=== PATIENT | female | born 1975 | race Caucasian/White ===

== ENCOUNTER 2018-10-04 11:27 | Day surgery (SDC) | payer OTHER ==
[2018-10-04] MEDS ORDERED: MISOPROSTOL 0.2 MG TABLET ONE (11:32)
[2018-10-04] MEDS ORDERED: METHYLERGONOVINE MALEATE INJ/PF 0.2 MG/1 ML AMPULE ONE (11:32)
[2018-10-04] MEDS ORDERED: FENTANYL CITRATE INJ/PF 100 MCG/2 ML AMPUL ONE (11:54)
[2018-10-04] MEDS ORDERED: ONDANSETRON HCL INJ/PF 4 MG/2 ML SDV ONE (11:54)
[2018-10-04] MEDS ORDERED: DEXAMETHASONE SOD PHOSPHATE INJ 4 MG/1 ML VIAL ONE (11:54)
[2018-10-04] MEDS ORDERED: MIDAZOLAM 2 MG/2 ML INJ ONE (11:54)
[2018-10-04] MEDS ORDERED: PROPOFOL INJ 200 MG/20 ML VIAL IV ONE (11:55)
[2018-10-04] MEDS ORDERED: DOXYCYCLINE HYCLATE 100 MG in DEXTROSE 5%-WATER 250 ML IV PRN (12:00)
[2018-10-04] MEDS ORDERED: ALBUTEROL SULFATE 0.083% NEB 2.5 MG/3 ML AMPUL NEB ONE (12:05)
[2018-10-04 12:09] LABS: APPEARANCE,URINE CLEAR; BILIRUBIN,URINE NEGATIVE (NEGATIVE); COLOR,URINE STRAW; GLUCOSE, URINE 50 mg/dL (NEGATIVE); KETONES,URINE NEGATIVE (NEGATIVE); LEUKOCYTE ESTERASE,URINE NEGATIVE (NEGATIVE); NITRITE,URINE NEGATIVE (NEGATIVE); PROTEIN,URINE NEGATIVE (NEGATIVE); URINE SPECIFIC GRAVITY 1.006; UROBILINOGEN,URINE NEGATIVE mg/dL (<2.0)
[2018-10-04 12:33] LABS: HEMATOCRIT 38.5 % (36.0-47.0); HEMOGLOBIN 13.9 g/dL (12.0-15.5); MEAN CORPUSCULAR HEMOGLOBIN 31.4 pg (27.0-33.4); MEAN CORPUSCULAR HGB CONC 36.1 g/dL (32.0-36.0); MEAN CORPUSCULAR VOLUME 87 fl (80-97); PLATELET COUNT 219 10^3/uL (150-450); RED BLOOD COUNT 4.43 10^6/uL (3.72-5.28); RED CELL DISTRIBUTION WIDTH 14.2 % (11.5-14.0); WHITE BLOOD COUNT 9.4 10^3/uL (4.0-10.5)
[2018-10-04] MEDS ORDERED: METOCLOPRAMIDE HCL INJ/PF 10 MG/2 ML SDV ONE (12:38)
[2018-10-04] MEDS ORDERED: FAMOTIDINE INJ/PF 20 MG/2 ML SDV IV ONE (12:39)
[2018-10-04] MEDS ORDERED: RINGERS SOLUTION,LACTATED 1,000 ML IV ONE (12:45)
[2018-10-04] MEDS ORDERED: PROMETHAZINE HCL INJ 25 MG/1 ML VIAL IV PRN ×2 (13:28)
[2018-10-04] MEDS ORDERED: DIPHENHYDRAMINE HCL 50 MG/ML VIAL IV PRN (13:28)
[2018-10-04] MEDS ORDERED: FENTANYL CITRATE INJ/PF 100 MCG/2 ML AMPUL IV PRN ×3 (13:28)
[2018-10-04] MEDS ORDERED: MEPERIDINE HCL/PF INJ 25 MG/1 ML DISP.SYRIN IV PRN (13:28)
[2018-10-04 13:43] LABS: CHLAM PCR NOT DETECTED (NOT DETECT); GON PCR NOT DETECTED (NOT DETECT)
[2018-10-04] MEDS: FENTANYL CITRATE INJ/PF 100 MCG/2 ML AMPUL ONE ×2 (13:45→13:50)
--- NOTE | 2018-10-04 13:51 | Operative Report ---
Operative Report DATE OF SURGERY: 10/04/18 PREOPERATIVE DIAGNOSIS: 1. Missed at 7 weeks. 2. Rh+ POSTOPERATIVE DIAGNOSIS: Same OPERATION: Suction dilatation and curettage SURGEON: PAULO WALKER ANESTHESIA: GA TISSUE REMOVED OR ALTERED: Products of conception COMPLICATIONS: None ESTIMATED BLOOD LOSS: 100 ml INTRAOPERATIVE FINDINGS: Uterus sounded to 10 cm; minimal amounts of products of conception; 8 mm curved [place] curette used for the procedure PROCEDURE: After appropriate consents had been obtained, the patient was taken to the Operating Room where general anesthesia was placed without difficulty. She was prepped and draped in the normal sterile fashion in the dorsal lithotomy position. Exam under anesthesia was performed with an 10 week sized uterus and no adnexal pathology palpable. Straight catheter urine was obtained of approximately 200 mL of clear urine. A speculum was placed in the vagina. The anterior lip the cervix was grasped with a single-tooth tenaculum. The uterus sounded to 10 cm. Sequential dilators were then used to dilate the cervix to a size 24. An 8 mm curved suction curette was introduced and products of conception were removed. The suction catheter was removed and gentle curettage was then undertaken throughout the cavity. The suction catheter was introduced once again and additional products of conception and blood clot were removed. The curette was once again introduced and the cavity was felt to be empty of further tissue. All instruments were then removed from the patient's vagina. The anterior lip of the cervix was hemostatic. Minimal bleeding was seen coming from the cervical os. Cytotec 800 mcg was placed per rectum. Sponge and instrument counts were correct x 2. Patient tolerated procedure well and transferred to recovery in stable condition. Patient was given doxycycline 100 mg IV piggyback intraoperatively.
[2018-10-04] MEDS ORDERED: KETOROLAC TROMETHAMINE INJ/PF 30 MG/1 ML SDV ONE (13:57)
[2018-10-04] MEDS ORDERED: ACETAMINOPHEN 1,000 MG/100 ML RTUPB IV ONE (14:08)
[2018-10-04] MEDS: HYDROMORPHONE HCL INJ/PF 2 MG/ML AMPULE ONE ×2 (14:10→15:10)
[2018-10-04] MEDS ORDERED: LORAZEPAM INJ 2 MG/1 ML VIAL ONE (14:25)
[2018-10-04] MEDS ORDERED: HYDROMORPHONE HCL INJ/PF 2 MG/ML AMPULE ONE (15:04)
[2018-10-04 16:43] VITALS: BP 117/73
== END 2018-10-04 16:20 | disposition home or self-care (01) ==
LOC: OROUT 11:27
PROVIDERS: ATTEND Obstetrics & Gynecology
DX: O02.1 Missed abortion (principal); Z87.891 Personal history of nicotine dependence; Z79.4 Long term (current) use of insulin; Z79.899 Other long term (current) drug therapy; Z88.0 Allergy status to penicillin; Z88.5 Allergy status to narcotic agent; D64.9 Anemia, unspecified
CPT/HCPCS: 86900; 86901; 36415; 85027; 81001; 87491; 87591; 88305 ×2; 59820; J2250; J1100; J3490; J3010; J1885; J2765; J1170; J2060; J2405; J7060; J2704; S0028; J0131; 1965; J2210

== ENCOUNTER → 2019-04-28 | Outpatient (CLI) | payer OTHER | LOC: OD 09:58 | PROVIDERS: ATTEND Student in an Organized Health Care Education/Training Program | DX: O20.0 Threatened abortion (principal) | CPT/HCPCS: 36415; 84702 ==

== ENCOUNTER 2019-05-03 11:53 | Day surgery (SDC) | payer OTHER ==
[~2019-05-03 11:53] MED LIST: FENTANYL CITRATE INJ/PF 100 MCG/2 ML AMPUL ONE; MIDAZOLAM 2 MG/2 ML INJ ONE; PROPOFOL INJ 200 MG/20 ML VIAL IV ONE
[2019-05-03] MEDS ORDERED: DOXYCYCLINE HYCLATE 100 MG in DEXTROSE 5%-WATER 250 ML IV PRN ×2 (12:02→12:30)
[2019-05-03 12:27] LABS: ABSOLUTE BASOPHILS # (AUTO) 0.1 10^3/uL (0.0-0.2); ABSOLUTE EOSINOPHILS # (AUTO) 0.3 10^3/uL (0.0-0.6); ABSOLUTE LYMPHOCYTES (AUTO) 3.2 10^3/uL (0.5-4.7); ABSOLUTE MONOCYTES (AUTO) 0.5 10^3/uL (0.1-1.4); ABSOLUTE NEUT (AUTO) 6.7 10^3/uL (1.7-8.2); BASOPHILS % (AUTO) 0.6 % (0-2); EOSINOPHILS % (AUTO) 2.5 % (0-6); HEMATOCRIT 33.6 % (36.0-47.0); HEMOGLOBIN 11.7 g/dL (12.0-15.5); LYMPHOCYTES % (AUTO) 29.6 % (13-45); MEAN CORPUSCULAR HEMOGLOBIN 31.1 pg (27.0-33.4); MEAN CORPUSCULAR VOLUME 89 fl (80-97); MONOCYTES % (AUTO) 5.1 % (3-13); PLATELET COUNT 209 10^3/uL (150-450); RED BLOOD COUNT 3.77 10^6/uL (3.72-5.28); RED CELL DISTRIBUTION WIDTH 13.7 % (11.5-14.0); SEGMENTED NEUTROPHILS % (AUTO) 62.2 % (42-78); TOTAL CELLS COUNTED % (AUTO) 100 %; WHITE BLOOD COUNT 10.7 10^3/uL (4.0-10.5)
[2019-05-03] MEDS ORDERED: IBUPROFEN 800 MG TABLET PO PRN ×2 (12:31→15:48)
[2019-05-03] MEDS ORDERED: OXYCODONE-ACETAMINOPHEN 5-325 MG TABLET PO PRN ×6 (12:32→15:48)
[2019-05-03 12:41] LABS: APPEARANCE,URINE CLEAR; BILIRUBIN,URINE NEGATIVE (NEGATIVE); GLUCOSE, URINE 50 mg/dL (NEGATIVE); KETONES,URINE TRACE mg/dL (NEGATIVE); LEUKOCYTE ESTERASE,URINE TRACE (NEGATIVE); NITRITE,URINE NEGATIVE (NEGATIVE); PROTEIN,URINE >=500 mg/dL (NEGATIVE); URINE SPECIFIC GRAVITY 1.029; UROBILINOGEN,URINE NEGATIVE mg/dL (<2.0)
[2019-05-03 12:45] LABS: COLOR,URINE RED
[2019-05-03] MEDS ORDERED: LIDOCAINE 1%/EPINEPHRINE INJ 20 ML VIAL ONE (13:22)
[2019-05-03] MEDS ORDERED: METHYLERGONOVINE MALEATE INJ/PF 0.2 MG/1 ML AMPULE ONE (13:45)
[2019-05-03] MEDS ORDERED: ONDANSETRON HCL INJ/PF 4 MG/2 ML SDV ONE (14:13)
[2019-05-03] MEDS ORDERED: DIPHENHYDRAMINE HCL 50 MG/ML VIAL IV PRN (14:36)
[2019-05-03] MEDS ORDERED: ONDANSETRON HCL INJ/PF 4 MG/2 ML SDV IV PRN ×2 (14:36→15:29)
[2019-05-03] MEDS ORDERED: PROMETHAZINE HCL INJ 25 MG/1 ML VIAL IV PRN (14:36)
[2019-05-03] MEDS ORDERED: FENTANYL CITRATE INJ/PF 100 MCG/2 ML AMPUL IV PRN ×3 (14:36)
[2019-05-03] MEDS ORDERED: MEPERIDINE HCL/PF INJ 25 MG/1 ML DISP.SYRIN IV PRN (14:36)
[2019-05-03] MEDS ORDERED: MORPHINE SULFATE 10 MG/ML INJ IV PRN (14:36)
[2019-05-03] MEDS ORDERED: FENTANYL CITRATE INJ/PF 100 MCG/2 ML AMPUL ONE (14:48)
[2019-05-03] MEDS: HYDROMORPHONE HCL INJ/PF 2 MG/ML AMPULE ONE ×3 (14:53→15:02)
[2019-05-03] MEDS ORDERED: DEXAMETHASONE SOD PHOSPHATE INJ 4 MG/1 ML VIAL ONE (14:56)
[2019-05-03] MEDS ORDERED: KETOROLAC TROMETHAMINE 60 MG/2 ML SDV ONE (14:56)
[2019-05-03] MEDS ORDERED: HYDROMORPHONE HCL INJ/PF 2 MG/ML AMPULE IV ONE (15:15)
[2019-05-03] MEDS ORDERED: LORAZEPAM 1 MG TABLET ONE (15:21)
[2019-05-03] MEDS ORDERED: LORAZEPAM 1 MG TABLET PO ONE (15:30)
[2019-05-03] MEDS ORDERED: OXYCODONE-ACETAMINOPHEN 5-325 MG TABLET ONE (15:38)
[2019-05-03] MEDS ORDERED: SCOPOLAMINE HYDROBROMIDE 1.5 MG PATCH.TD72 ONE (16:41)
[2019-05-03 16:51] VITALS: BP 124/73
--- NOTE | 2019-05-07 07:14 | Operative Report ---
Operative Report DATE OF SURGERY: 05/03/19 PREOPERATIVE DIAGNOSIS: MAB at approximately 5wks, Retained products of concept ion, Type II DM POSTOPERATIVE DIAGNOSIS: CASEY OPERATION: EUA, Paracervical Block, Suction Dilation and Curettage SURGEON: NEIL ENAMORADO ANESTHESIA: LMAC TISSUE REMOVED OR ALTERED: products of conception COMPLICATIONS: None ESTIMATED BLOOD LOSS: 50ml INTRAOPERATIVE FINDINGS: 6wks AV uterus, no adnexal masses palpable, moderate products of conception PROCEDURE: Anesthesia: [Lu MULLER, Demetrice Teixeira MANAGER CUSTOM] IVF: [500ml] UOP: [void prior to OR] Indications: [43yo with LMP 03/24/2019 and approx 5-6weeks presents with significant vaginal bleeding with clots since 04/20/2019. BHCG hormone levels were however initially rising appropriately and on Wednesday04/28/2019 gestational sac was noted. She was seen on 05/01/2019 with significant increase in vaginal bleeding and gestational sac was not present any longer (and BHCG was lower that it should be). She was counseled regarding options and desired trial of cytotec on 05/01. She was seen on 05/02 and bleeding had not increased since taking cytotec and retained products still present on US. She was counseled at that time regarding cytotec again or Suction D&C. Due to her prolonged vaginal bleeding she desires Suction D&C. The risks, benefits, alternatives were reviewed and she desires to proceed with Suction D&C.] Procedure: The patient was taken to the Operating Room where general anesthesia was obtained without difficulty. She was prepped and draped in the normal sterile fashion in the dorsal lithotomy position. Exam under anesthesia was performed and noted above. A speculum was placed in the vagina. The anterior cervix was grasped with a single-tooth tenaculum and the uterus sounded to [8cm] after paracervical block was performed with 8 mL of 1% lidocaine with epinephrine. The cervix was noted to be closed at the beginning of the procedure. Sequential dilators were then used to dilate the cervix to accommodate the the 8 mm suction curet curved. The 8 mm curved suction curet was gently advanced in the usual fashion and good return of tissue. The suction device was then activated and the curet rotated to clear the uterus of the products of conception. A sharp curettage was then performed. The suction device was then gently reintroduced and activated and the curet rotated to clear the uterus of conception which was loosened with recent sharp curettage. The sharp curettage was then performed again until a gritty texture was noted and the cavity was felt to be empty of further tissue. At this time there was minimal bleeding noted from the cervix. All instruments were removed from the patient's cervix and vagina. Silver nitrate was applied to the tenaculum site for hemostasis. Sponge lap needle and instrument counts are correct 2. Doxycycline 100 mg IV was given perioperatively. The patient tolerated the procedure well and was taken to the recovery area awake and in stable condition. The patient was discharged home with pain medications as well as by mouth Methergine.
== END 2019-05-03 16:45 | disposition home or self-care (01) ==
LOC: OROUT 11:53
PROVIDERS: ATTEND Student in an Organized Health Care Education/Training Program
DX: O02.1 Missed abortion (principal); E11.9 Type 2 diabetes mellitus without complications; E78.1 Pure hyperglyceridemia; Z87.891 Personal history of nicotine dependence; Z79.4 Long term (current) use of insulin; Z79.84 Long term (current) use of oral hypoglycemic drugs; Z79.899 Other long term (current) drug therapy
CPT/HCPCS: 86900; 86901; 36415; 86850; 82947; 84702; 85025; 81001; 88305 ×2; 01965; 59820; J2250; J1100; J3490 ×2; J1885; J3010; J1170; J2405; J7060; J2704; 1965; J2210

== ENCOUNTER → 2020-03-14 | Outpatient (CLI) | payer OTHER ==
--- NOTE | 2020-03-14 14:30 | RADIOLOGY REPORT (SQ) ---
EXAM DESCRIPTION: HYSTEROSALPINGOGRAM; HYSTERO CATH/INJECTION IMAGES COMPLETED DATE/TIME: 03/14/2020 1:13 pm REASON FOR STUDY: N97.9 FEMALE INFERTILITY, UNSPECIFIED N97.9 FEMALE INFERTILITY, UNSPECIFIED COMPARISON: None. PROCEDURE: PRE-PROCEDURE: Procedure was explained to the patient. She was told to expect cramping du ring the procedure, and possible spotting post procedure. PROCEDURE: The cervix was prepped in sterile fashion. Under direct visual inspection, the cervix was cannulated with the hysterosalpingogram catheter and contrast injected. TECHNIQUE: Temporal fluoroscopic images acquired during the procedure stored to PACS. FLUOROSCOPY TIME: 12 seconds 3 images saved to PACS. LIMITATIONS: None. FINDINGS: UTERUS: No identified anomalies. No synechia. RIGHT ADNEXA: Normal size fallopian tube. Free spill of contrast into the peritoneal cavity. LEFT ADNEXA: Normal size fallopian tube. Free spill of contrast into the peritoneal cavity. POST PROCEDURE: The patient tolerated the procedure with no adverse effects. IMPRESSION: NORMAL HYSTEROSALPINGOGRAM. COMMENT: Study performed by and interpreted by the radiologist. Quality ID 145: Final reports for procedures using fluoroscopy that document radiation exposure clover nany, or exposure time and number of fluorographic images (if radiation exposure indices are not avail able) TECHNICAL DOCUMENTATION: JOB ID: [id number] 2010 [employer]- All Rights Reserved Reading location - IP/workstation name: [email or web address]
--- NOTE | 2020-03-14 14:30 | RADIOLOGY REPORT (SQ) ---
EXAM DESCRIPTION: HYSTEROSALPINGOGRAM; HYSTERO CATH/INJECTION IMAGES COMPLETED DATE/TIME: 03/14/2020 1:13 pm REASON FOR STUDY: N97.9 FEMALE INFERTILITY, UNSPECIFIED N97.9 FEMALE INFERTILITY, UNSPECIFIED COMPARISON: None. PROCEDURE: PRE-PROCEDURE: Procedure was explained to the patient. She was told to expect cramping du ring the procedure, and possible spotting post procedure. PROCEDURE: The cervix was prepped in sterile fashion. Under direct visual inspection, the cervix was cannulated with the hysterosalpingogram catheter and contrast injected. TECHNIQUE: Temporal fluoroscopic images acquired during the procedure stored to PACS. FLUOROSCOPY TIME: 12 seconds 3 images saved to PACS. LIMITATIONS: None. FINDINGS: UTERUS: No identified anomalies. No synechia. RIGHT ADNEXA: Normal size fallopian tube. Free spill of contrast into the peritoneal cavity. LEFT ADNEXA: Normal size fallopian tube. Free spill of contrast into the peritoneal cavity. POST PROCEDURE: The patient tolerated the procedure with no adverse effects. IMPRESSION: NORMAL HYSTEROSALPINGOGRAM. COMMENT: Study performed by and interpreted by the radiologist. Quality ID 145: Final reports for procedures using fluoroscopy that document radiation exposure clover nany, or exposure time and number of fluorographic images (if radiation exposure indices are not avail able) TECHNICAL DOCUMENTATION: JOB ID: [id number] 2010 [employer]- All Rights Reserved Reading location - IP/workstation name: [email or web address]
== END ==
LOC: RAD 12:34
PROVIDERS: ATTEND Student in an Organized Health Care Education/Training Program
DX: N97.9 Female infertility, unspecified (principal)
CPT/HCPCS: 58340; 74740

== ENCOUNTER 2020-09-13 17:44 | Emergency (ER) | payer OTHER ==
--- NOTE | 2020-09-13 18:43 | ER Document Report ---
ED Medical Screen (RME) - General Stated Complaint: ABDOMINAL PAIN/VOMITING Time Seen by Provider: 09/13/20 18:36 Primary Care Provider: NEIL ENAMORADO MD [Primary Care Provider] - Follow up as needed Notes: Patient is a 44-year-old female who presents emergency department with a chief complaint of right upper quadrant abdominal pain that starts on her right side and radiates to her back. Patient states that she started to feel her symptoms this morning. Patient vomited today. States that the pain will come and go. Patient has history of D&Cs in the past. Patient also has history of pancreatitis. Exam: Tender right upper quadrant. I have greeted and performed a rapid initial assessment of this patient. A comprehensive ED assessment and evaluation of the patient, analysis of test results and completion of medical decision making process will be conducted by an additional ED providers. TRAVEL OUTSIDE OF THE [place] IN LAST 30 DAYS: No - Related Data Allergies/Adverse Reactions: codeine Allergy (Verified 05/03/19 12:13) Penicillins Allergy (Verified 05/03/19 12:13) Past Medical History - Past Medical History Cardiac Medical History: Reports: Hx Hypercholesterolemia, Hx Hypertension Denies: Hx Coronary Artery Disease, Hx Heart Attack Pulmonary Medical History: Reports: Hx Pneumonia Denies: Hx Asthma, Hx Bronchitis, Hx COPD Neurological Medical History: Reports: Hx Migraine. Denies: Hx Cerebrovascular Accident, Hx Seizures Endocrine Medical History: Reports: Hx Diabetes Mellitus Type 1, Hx Diabetes Mellitus Type 2 Renal/ Medical History: Denies: Hx Peritoneal Dialysis Musculoskeltal Medical History: Denies Hx Arthritis Past Surgical History: Reports: Hx Breast Surgery - reduction left breast, Hx Gynecologic Surgery - D&C x2 - Immunizations Immunizations up to date: Yes Hx Diphtheria, Pertussis, Tetanus Vaccination: Yes Physical Exam - Vital signs Vitals: Temp Pulse Resp BP Pulse Ox 98.6 F 106 H 18 177/96 H 99 09/13/20 18:35 09/13/20 18:35 09/13/20 18:35 09/13/20 18:35 09/13/20 18:35 Course - Vital Signs Vital signs: Temp Pulse Resp BP Pulse Ox 98.6 F 106 H 18 177/96 H 99 09/13/20 18:35 09/13/20 18:35 09/13/20 18:35 09/13/20 18:35 09/13/20 18:35 Doctor's Discharge - Discharge Referrals: NEIL ENAMORADO MD [Primary Care Provider] - Follow up as needed
[2020-09-13] MEDS ORDERED: ONDANSETRON 4 MG TAB.RAPDIS PO ONE (20:24)
[2020-09-13] MEDS ORDERED: HYDROCODONE/ACETAMINOPHEN 5-325 MG TABLET PO ONE (20:24)
[2020-09-13 20:31] LABS: ABSOLUTE BASOPHILS # (AUTO) 0.1 10^3/uL (0.0-0.2); ABSOLUTE EOSINOPHILS # (AUTO) 0.3 10^3/uL (0.0-0.6); ABSOLUTE LYMPHOCYTES (AUTO) 2.1 10^3/uL (0.5-4.7); ABSOLUTE NEUT (AUTO) 13.8 10^3/uL (1.7-8.2); BASOPHILS % (AUTO) 0.6 % (0-2); EOSINOPHILS % (AUTO) 1.5 % (0-6); HEMATOCRIT 41.7 % (36.0-47.0); HEMOGLOBIN 14.7 g/dL (12.0-15.5); LYMPHOCYTES % (AUTO) 12.3 % (13-45); MEAN CORPUSCULAR HEMOGLOBIN 30.9 pg (27.0-33.4); MEAN CORPUSCULAR HGB CONC 35.1 g/dL (32.0-36.0); MEAN CORPUSCULAR VOLUME 88 fl (80-97); MONOCYTES % (AUTO) 5.5 % (3-13); PLATELET COUNT 232 10^3/uL (150-450); RED BLOOD COUNT 4.75 10^6/uL (3.72-5.28); RED CELL DISTRIBUTION WIDTH 14.2 % (11.5-14.0); SEGMENTED NEUTROPHILS % (AUTO) 80.1 % (42-78); TOTAL CELLS COUNTED % (AUTO) 100 %; WHITE BLOOD COUNT 17.3 10^3/uL (4.0-10.5)
[2020-09-13 20:52] LABS: APPEARANCE,URINE CLEAR; BILIRUBIN,URINE NEGATIVE (NEGATIVE); COLOR,URINE YELLOW; GLUCOSE, URINE NEGATIVE (NEGATIVE); KETONES,URINE NEGATIVE (NEGATIVE); LEUKOCYTE ESTERASE,URINE NEGATIVE (NEGATIVE); NITRITE,URINE NEGATIVE (NEGATIVE); PROTEIN,URINE NEGATIVE (NEGATIVE); URINE SPECIFIC GRAVITY 1.012; UROBILINOGEN,URINE NEGATIVE mg/dL (<2.0)
[2020-09-13 20:56] LABS: ALBUMIN 4.9 g/dL (3.5-5.0); ALKALINE PHOSPHATASE 66 U/L (38-126); ANION GAP 16 (5-19); ASPARTATE AMINO TRANSFERASE 27 U/L (14-36); BILIRUBIN,DIRECT 0.1 mg/dL (0.0-0.4); BILIRUBIN,TOTAL 0.5 mg/dL (0.2-1.3); BLOOD UREA NITROGEN 15 mg/dL (7-20); CALCIUM 10.3 mg/dL (8.4-10.2); CARBON DIOXIDE 23 mmol/L (22-30); CHLORIDE 100 mmol/L (98-107); GLUCOSE 180 mg/dL (75-110); POTASSIUM 3.9 mmol/L (3.6-5.0); TOTAL PROTEIN 7.4 g/dL (6.3-8.2)
--- NOTE | 2020-09-13 22:53 | RADIOLOGY REPORT (SQ) ---
EXAM DESCRIPTION: US ABDOMEN LIMITED COMPLETED DATE/TME: 09/13/2020 22:27 CLINICAL HISTORY: 44 years, Female, RUQ pain COMPARISON: None. TECHNIQUE: Multiple images of the right upper quadrant were obtained. Grayscale imaging and Doppler imaging were performed. LIMITATIONS: None. FINDINGS: There are multiple stones within the gallbladder measuring up to 15 mm. There is no gallbladder wall thickening or pericholecystic fluid. The trouble locator test desk, however, reports a positive sonographic Ledezma's sign. The common bile duct is normal in caliber at 5 mm. Liver is mildly enlarged at 16.1 cm in length and has a heterogeneous, echogenic appearance, likely due to fatty infiltration. The portal vein is patent with a normal-appearing internal Doppler waveform. The pancreas is partially obscured by bowel gas, however the visualized portions of the pancreatic head and body appear within normal limits. The right kidney is normal in length with no hydronephrosis. IMPRESSION: 1. Cholelithiasis. There is no sonographic evidence of acute cholecystitis, however there is reportedly a positive sonographic Ledezma's sign and clinical correlation is recommended to exclude early acute cholecystitis. 2. Hepatic steatosis. copyright 2010 [facility]- All Rights Reserved
[2020-09-13 23:39] VITALS: BP 140/88
== END 2020-09-14 03:40 | disposition left against medical advice (07) ==
LOC: ER 17:44
DX: K80.20 Calculus of gallbladder without cholecystitis without obstruction (principal); K76.0 Fatty (change of) liver, not elsewhere classified; R10.11 Right upper quadrant pain; R11.10 Vomiting, unspecified; R10.811 Right upper quadrant abdominal tenderness; E11.9 Type 2 diabetes mellitus without complications; I10 Essential (primary) hypertension; Z87.19 Personal history of other diseases of the digestive system; Z88.6 Allergy status to analgesic agent; Z88.5 Allergy status to narcotic agent; Z88.0 Allergy status to penicillin; Z53.29 Procedure and treatment not carried out because of patient's decision for other reasons
CPT/HCPCS: 99281; 36415; 83690; 85025; 81025; 80053; 81001; 76705; S0119

== ENCOUNTER → 2020-09-18 | Outpatient (CLI) | payer OTHER ==
[2020-09-18 11:35] LABS: ABSOLUTE BASOPHILS # (AUTO) 0.1 10^3/uL (0.0-0.2); ABSOLUTE EOSINOPHILS # (AUTO) 0.5 10^3/uL (0.0-0.6); ABSOLUTE MONOCYTES (AUTO) 0.6 10^3/uL (0.1-1.4); ABSOLUTE NEUT (AUTO) 6.1 10^3/uL (1.7-8.2); BASOPHILS % (AUTO) 0.8 % (0-2); EOSINOPHILS % (AUTO) 4.5 % (0-6); HEMOGLOBIN 14.7 g/dL (12.0-15.5); LYMPHOCYTES % (AUTO) 29.2 % (13-45); MEAN CORPUSCULAR HEMOGLOBIN 30.8 pg (27.0-33.4); MEAN CORPUSCULAR HGB CONC 34.9 g/dL (32.0-36.0); MEAN CORPUSCULAR VOLUME 88 fl (80-97); MONOCYTES % (AUTO) 6.2 % (3-13); PLATELET COUNT 244 10^3/uL (150-450); RED BLOOD COUNT 4.76 10^6/uL (3.72-5.28); RED CELL DISTRIBUTION WIDTH 13.8 % (11.5-14.0); SEGMENTED NEUTROPHILS % (AUTO) 59.3 % (42-78); TOTAL CELLS COUNTED % (AUTO) 100 %; WHITE BLOOD COUNT 10.3 10^3/uL (4.0-10.5)
== END ==
LOC: OD 10:51
PROVIDERS: ATTEND Family Medicine
DX: D72.829 Elevated white blood cell count, unspecified (principal)
CPT/HCPCS: 36415; 85025

== ENCOUNTER 2020-10-02 08:22 | Day surgery (SDC) | payer OTHER ==
[~2020-10-02 08:22] MED LIST changes: +ACETAMINOPHEN 325 MG TABLET PO PRN; +CIPROFLOXACIN 400 MG/D5W RTU 400 MG/200 ML RTUPB IV ONE; +CIPROFLOXACIN 400 MG/D5W RTU 400 MG/200 ML RTUPB IV PRN; -FENTANYL CITRATE INJ/PF 100 MCG/2 ML AMPUL ONE; -MIDAZOLAM 2 MG/2 ML INJ ONE; -PROPOFOL INJ 200 MG/20 ML VIAL IV ONE
[2020-10-02 09:13] LABS: HEMATOCRIT 39.3 % (36.0-47.0); HEMOGLOBIN 13.9 g/dL (12.0-15.5); MEAN CORPUSCULAR HGB CONC 35.3 g/dL (32.0-36.0); MEAN CORPUSCULAR VOLUME 88 fl (80-97); PLATELET COUNT 227 10^3/uL (150-450); RED BLOOD COUNT 4.47 10^6/uL (3.72-5.28); RED CELL DISTRIBUTION WIDTH 13.9 % (11.5-14.0); WHITE BLOOD COUNT 8.6 10^3/uL (4.0-10.5)
[2020-10-02 09:37] LABS: ALBUMIN 4.5 g/dL (3.5-5.0); ALKALINE PHOSPHATASE 65 U/L (38-126); AMYLASE 37 U/L (30-110); ANION GAP 12 (5-19); ASPARTATE AMINO TRANSFERASE 23 U/L (14-36); BILIRUBIN,DIRECT 0.2 mg/dL (0.0-0.4); BILIRUBIN,TOTAL 0.5 mg/dL (0.2-1.3); BLOOD UREA NITROGEN 9 mg/dL (7-20); CALCIUM 9.4 mg/dL (8.4-10.2); CARBON DIOXIDE 24 mmol/L (22-30); CHLORIDE 102 mmol/L (98-107); GLUCOSE 195 mg/dL (75-110); POTASSIUM 4.3 mmol/L (3.6-5.0)
[2020-10-02] MEDS ORDERED: LIDOCAINE 2% INJ-PF (20 MG/ML) 10 ML AMPUL ONE (10:09)
[2020-10-02] MEDS ORDERED: HYDROMORPHONE HCL INJ/PF 2 MG/ML AMPULE ONE ×2 (10:10→12:17)
[2020-10-02] MEDS ORDERED: MIDAZOLAM 2 MG/2 ML INJ ONE (10:10)
[2020-10-02] MEDS ORDERED: PROPOFOL INJ 200 MG/20 ML VIAL IV ONE (10:10)
[2020-10-02] MEDS ORDERED: DEXAMETHASONE SOD PHOSPHATE INJ 4 MG/1 ML VIAL ONE (10:10)
[2020-10-02] MEDS ORDERED: FENTANYL CITRATE INJ/PF 100 MCG/2 ML AMPUL ONE ×2 (10:10→11:05)
[2020-10-02] MEDS ORDERED: ONDANSETRON HCL INJ/PF 4 MG/2 ML SDV ONE (10:10)
[2020-10-02] MEDS ORDERED: BUPIVACAINE HCL 0.25 % INJ/PF (2.5 MG/1 ML) 30 ML VIAL ONE (10:15)
[2020-10-02] MEDS ORDERED: DIPHENHYDRAMINE HCL 50 MG/ML VIAL IV PRN (10:48)
[2020-10-02] MEDS ORDERED: FENTANYL CITRATE INJ/PF 100 MCG/2 ML AMPUL IV PRN ×3 (10:48)
[2020-10-02] MEDS ORDERED: MEPERIDINE HCL/PF INJ 25 MG/1 ML DISP.SYRIN IV PRN (10:48)
[2020-10-02] MEDS ORDERED: PROMETHAZINE HCL INJ 25 MG/1 ML VIAL IV PRN ×2 (10:48)
--- NOTE | 2020-10-02 11:40 | Discharge Summary ---
Discharge Summary (SDC) - Discharge Final Diagnosis: chronic cholecystitis Date of Surgery: 10/02/20 Discharge Date: 10/02/20 Condition: Good Treatment or Instructions: [facility] [address] [place] [id number] Discharge Instructions: Laparoscopic Surgery 1. General Information: a. DO NOT DRIVE a car or operate dangerous machinery for 3-4 days or while taking pain pills. b. DO NOT consume alcohol, tranquilizers, sleeping medications or any non- prescribed medications for 24 hours unless approved by your doctor or as long as taking narcotic prescription medications. c. DO NOT make important decisions or sign any important papers for the first 24 hours after surgery. d. When discharged home the same day of surgery have a responsible person with you for the first night. 2. Activity Restrictions: 2 weeks a. NO heavy lifting, straining abdominal muscles, bending over a lot, yard work, house work, or sports for [address] drive for 3-4 days . c. It is fine to go for walks, up and down steps, ride in a car. d. Elevate your head when sleeping/resting. 3. Treatment: a. You may shower 48 hours after surgery, no baths or swimming for 2 weeks. Remove band-aids or dressings before shower but leave paper strips (steri- strips) on the skin to fall off on their own. If still on at postoperative visit they will be removed then. b. Drainage of fluid or blood is not unusual from an incision. If occurs, you can clean with peroxide and cotton ball daily and cover with dry gauze until the wound seals. c. If a lot of bleeding occurs, you can hold pressure with a gauze or cloth over the site for 10 minutes and it will usually stop. If bleeding continues you will need to call for possible evaluation in office or emergency room. 4. Medications: a. _Toradol_ may be taken for pain as needed, one tablet every 6 hours. Do not take additional NSAIDs with medication. This can cause indigestion, ulcers, and kidney problems with long-term use. b. You should resume all normal medications unless a change is specified by your doctors. 5. Diet: Begin with clear liquids and may progress to your normal diet if not nauseated. No high fat, high protein foods the day of surgery. 6. The following may occur after laparoscopic surgery: a. Shoulder or upper back ache from retained gas that should resolve in 1-2 days b. Soreness and bruising at incision sites will resolve with time. c. Scrotal swelling (labia in women) and bruising is often seen after hernia surgery. d. Sore throat e. Fatigue may last days to weeks. f. Difficulty urinating may occur and may need to come into emergency room for urinary catheter placement. 7. Notify Physician If: a. Worsening or pain not improved with pain medication b. Persistent nausea and vomiting c. Fever above 101 d. Persistent bleeding or swelling at operative site e. Unable to urinate and uncomfortable bladder 6-8 hours after surgery 8..Follow Up Care: a. Schedule a follow up appointment with your doctor for 2 weeks. In the event of any postoperative problems or questions or you may call the office during business hours or the On-Call physician evenings and weekends at [facility]. [facility] I understand the instructions for my postoperative care as described above and a copy has been given to me. Patient/Significant Other Witness Date Prescriptions: Ketorolac Tromethamine [Toradol 10 mg Tablet] 10 mg PO Q6HP PRN #20 tablet PRN Reason: Referrals: CARRIE MARTINEZ MD [Primary Care Provider] - Discharge Diet: Other (Comments) - small bland portions then progress Discharge Activity: Balance Activity w/Rest, No Lifting Over 10 Pounds, No Lifting/Push/Pulling, Walk Frequently Report the Following to Your Physician Immediately: Nausea, Vomiting, Increase in Pain, Fever over 101 Degrees, Unusual Bleeding, Redness, Swelling, Increased Soreness, Drainage-Foul Smelling
--- NOTE | 2020-10-02 11:51 | Operative Report ---
Operative Report DATE OF SURGERY: 10/02/20 PREOPERATIVE DIAGNOSIS: 1. Symptomatic chronic cholecystitis. 2. Diabetes m ellitus POSTOPERATIVE DIAGNOSIS: Same OPERATION: Laparoscopic cholecystectomy SURGEON: FRANCOISE PUGH 1ST PULP DRIER: ANUPAMA STEPHENS ANESTHESIA: GA TISSUE REMOVED OR ALTERED: Gallbladder with contents COMPLICATIONS: None ESTIMATED BLOOD LOSS: 5 cc INTRAOPERATIVE FINDINGS: See below PROCEDURE: The patient was taken to the preop holding area to the main operating where general anesthesia was induced. Arms were abducted, abdomen exposed, prepped and draped in a sterile fashion Surgical plan and surgical timeout were conducted. She was set up for laparoscopic cholecystectomy. Markings were made on the abdominal wall for for port laparoscopy. All 4 sites were anesthetized with 1% plain lidocaine. A supraumbilical vertical incision was made with a 15 blade, Veress needle inserted into the peritoneal cavity, pneumoperitoneum was. Veress needle was removed, 5 mm port was inserted and a 5 mm viewing scope was inserted flexible tip and a wide. Visualization the peritoneal cavity revealed no evidence of bowel or vascular injury. A few drops of blood from the anterior abdominal wall at the 5 mm port site bleeding abated. Under direct visualization a subxiphoid 5 mm port and 2 subcostal ports were inserted. Intra-abdominal inspection revealed no other pathologic findings. There were adhesions between the fundus of the gallbladder and the transverse colon-omentum. These adhesions were all taken down to directly under excellent visualization with hook cautery dissection and gentle suction dissection. Once this was accomplished we began dissecting out the gallbladder infundibulum. Adhesions were moderately dense. However they did come down easily with a hook cautery and suction dissection. The cystic artery was in its usual location with a single branch going to the cystic duct. The cystic artery was dissected out with a right angle, clipped twice proximally once distally divided. The triangle of Calot was opened up widely. Multiple photos were taken demonstrating the critical view from the medial side and the lateral side. A small branch of the cystic artery feeding the cystic duct was clipped with a single clip application. The infundibulum tapered towards the neck of the gallbladder, however there was not a discrete narrow cystic duct. Photos were taken. I felt that amputation of the gallbladder along this narrowed, tapered neck was appropriate. However, prior to amputation, we took the gallbladder off the liver bed from the dome down using hook cautery dissection. The bladder was now suspended solely from the cystic duct. Photos were taken. 2-0 PDS Endoloops were placed across the elongated neck of the gallbladder and the gallbladder was amputated using scissors. The gallbladder was removed from the patient through the supraumbilical port site without difficulty and without content spillage. We checked for bleeding from the operative site and there was none. Clips were checked to be in good position on the cystic area, and Endoloop secured on the cystic duct stump. At this point felt the operation was complete, sponge and needle counts are correct. All ports removed under direct visualization, pneumoperitoneum evacuated wounds closed with 3-0 Vicryl, benzoin and Steri-Strips. Patient tolerated the procedure well, extubated, taken recovery room stable condition.
[2020-10-02] MEDS ORDERED: KETOROLAC TROMETHAMINE INJ/PF 30 MG/1 ML SDV ONE (12:05)
[2020-10-02] MEDS ORDERED: ACETAMINOPHEN 1,000 MG/100 ML RTUPB IV ONE (12:09)
[2020-10-02] MEDS ORDERED: OXYCODONE-ACETAMINOPHEN 5-325 MG TABLET ONE (12:58)
[2020-10-02 13:57] VITALS: BP 129/76
[2020-10-02] MEDS ORDERED: OXYCODONE-ACETAMINOPHEN 5-325 MG TABLET PO ONE (14:00)
[2020-10-02] MEDS ORDERED: NEOSTIGMINE METHYLSULFATE 10 MG/10 ML VIAL ONE (14:44)
[2020-10-02] MEDS ORDERED: GLYCOPYRROLATE 1 MG/5 ML VIAL ONE (14:44)
== END 2020-10-02 13:55 | disposition home or self-care (01) ==
LOC: OROUT 08:22
PROVIDERS: ATTEND Surgery
DX: K81.1 Chronic cholecystitis (principal); I10 Essential (primary) hypertension; E66.9 Obesity, unspecified; E11.9 Type 2 diabetes mellitus without complications; E78.1 Pure hyperglyceridemia; Z20.828 Contact with and (suspected) exposure to other viral communicable diseases; Z83.79 Family history of other diseases of the digestive system; K76.0 Fatty (change of) liver, not elsewhere classified; Z87.19 Personal history of other diseases of the digestive system; Z79.899 Other long term (current) drug therapy; Z79.84 Long term (current) use of oral hypoglycemic drugs; Z87.891 Personal history of nicotine dependence
CPT/HCPCS: 36415; 82150; 83690; 84703; 85027; 80076; 80048; 88304 ×2; 47562; U0003; J2250; J1100; J3010; J1885; J2710; J1170; J2405; J2704; J0744; J3490 ×2; J0131; C9803; 87635